=== PATIENT | female | born 1970 | race Two or more races ===

== ENCOUNTER 2024-10-22 06:20 | Day surgery (SDC) | payer OTHER ==
[2024-10-14 11:19] VITALS: BP 115/77
[~2024-10-22] VITALS: Ht 167.6 cm; Wt 90.7 kg
[~2024-10-22 06:20] MED LIST: GRALISE600 MG PO; PROTONIX20 MG PO; TOPROL XL50 M1 PO
[2024-10-22] MEDS ORDERED: DESMOPRESSIN ACETATE 40 MCG/10 ML ML IV NR (06:30)
[2024-10-22] MEDS ORDERED: TRIAMCINOLONE ACETONIDE 40 MG/ML VIAL IJ ONE (10:15)
[2024-10-22] MEDS ORDERED: CEFAZOLIN SODIUM 1,000 MG VIAL IV ONE (10:15)
[2024-10-22] MEDS ORDERED: MEPERIDINE HCL/PF 25 MG/ML VIAL IM STA (10:28)
[2024-10-22] MEDS ORDERED: PROMETHAZINE HCL 25 MG/ML AMPUL IM STA (10:29)
[2024-10-22] MEDS ORDERED: EPINEPHRINE HCL/PF 1 MG/ML AMPUL IR ONE (10:30)
[2024-10-22] MEDS ORDERED: PERCOCET 5-3251 EACH PO (10:46)
[2024-10-22] MEDS ORDERED: DESMOPRESSIN ACETATE 4 MCG/ML AMPUL IV ONE (12:15)
== END 2024-10-22 15:05 | disposition home or self-care (01) ==
LOC: CIR.AMB 06:20
PROVIDERS: ATTEND Orthopaedic Surgery
DX: S83.212A Bucket-handle tear of medial meniscus, current injury, left knee, initial encounter (principal); M67.52 Plica syndrome, left knee; M22.42 Chondromalacia patellae, left knee; Z88.6 Allergy status to analgesic agent

== ENCOUNTER 2024-10-23 17:22 | Emergency (ER) | payer OTHER ==
[~2024-10-23] VITALS: Ht 152.4 cm; Wt 90.7 kg
[~2024-10-23 17:22] MED LIST changes: +PERCOCET 5-3251 EACH PO
[2024-10-23] MEDS ORDERED: MAG HYDROX/ALUMINUM HYD/SIMETH 30 ML BLIST.PACK PO ONE (19:15)
[2024-10-23] MEDS ORDERED: HYOSCYAMINE SULFATE 0.125 MG TAB.SUBL SL ONE (19:15)
== END 2024-10-23 20:38 | disposition home or self-care (01) ==
LOC: ER 17:28
DX: G97.1 Other reaction to spinal and lumbar puncture (principal); M17.12 Unilateral primary osteoarthritis, left knee; D68.09 Other von Willebrand disease; I10 Essential (primary) hypertension; G43.909 Migraine, unspecified, not intractable, without status migrainosus; M79.7 Fibromyalgia; Z88.6 Allergy status to analgesic agent; M22.40 Chondromalacia patellae, unspecified knee; K29.70 Gastritis, unspecified, without bleeding